=== PATIENT | female | born 1950 | race Caucasian/White ===

== ENCOUNTER 2018-02-10 09:06 | Outpatient (CLI) | payer BC | END 2018-02-10 09:07 | disposition home or self-care (01) | LOC: BICMAMMO 09:06 | PROVIDERS: ATTEND Physician Assistant | DX: Z12.31 Encounter for screening mammogram for malignant neoplasm of breast (principal); Z13.820 Encounter for screening for osteoporosis | CPT/HCPCS: 77063; 77067; 77080 ==

== ENCOUNTER 2018-10-22 11:13 | Observation (INO) | payer BC, MEDICARE ==
[2018-10-22] MEDS ORDERED: Acetaminophen 325 MG TAB PO PRN (14:20)
[2018-10-22] MEDS ORDERED: Nitroglycerin 0.4 MG TAB (25 Tab Bottle) PO PRN (14:20)
[2018-10-22] MEDS ORDERED: Ondansetron ODT 4 MG TAB PO PRN (14:20)
[2018-10-22] MEDS ORDERED: Zolpidem Tartrate 5 MG TAB PO PRN (14:20)
[2018-10-22 14:28] VITALS: BMI 26.2
--- NOTE | 2018-10-22 15:01 | HP ---
PRIMARY CARE PROVIDER: Lexi Cruz PA-C. HISTORY OF PRESENT ILLNESS: The patient referred to the [facility] by [facility] Emergency Department after being transferred from an outlhospital for behavioral medicine center. The patient presents with chest pain, most described as epigastric, happened after a bagel and coffee. It is pertinent. She has had a gastric sleeve. It lasted about 15 minutes. No shortness of breath, sweats, nausea, etc. No radiation. PAST MEDICAL HISTORY: Hypertension, gastric sleeve, appendectomy, cholecystectomy, and breast reduction. MEDICATIONS: 1. Atenolol 50 mg one a day. 2. Amlodipine 2.5 mg one a day. ALLERGIES: MORPHINE MAKES HER ITCH. FAMILY HISTORY: No coronary artery disease. No diabetes. Her mother had hypertension. SOCIAL HISTORY: . Full code. is surrogate decision maker. No tobacco. No alcohol. REVIEW OF SYSTEMS: GENERAL: She had some dizziness today with the present illness, no finding by history. She was not given any nitrates, but she did get Lovenox therapeutic dose subcu at the [facility]. EYES: No double vision, blurred vision, or flashing lights. EAR, NOSE AND THROAT: No ear pain or drainage. No nasal bleeding. No trouble swallowing. CARDIAC: See present illness. No orthopnea or paroxysmal nocturnal dyspnea. RESPIRATIONS: No cough, wheezing, or asthma. GASTROINTESTINAL: She has diarrhea occasionally since her gastric sleeve. No constipation. No nausea, no vomiting, no abdominal pain separate from the pain just described, which is basically epigastric to lower sternal. GENITOURINARY: No hematuria, dysuria, or nocturia. MUSCULOSKELETAL: No pain or swelling in her arms or legs. NEUROLOGIC: No strokes, seizures, or focal weakness. PSYCHIATRIC: She has had three anxiety attacks and she had regressed gastric sleeve. Takes no medication. SKIN: Bruises easily. HEME/LYMPH: No tender or swollen lymph nodes in the axilla, inguinal, or cervical area. PHYSICAL EXAMINATION: GENERAL: She is alert, pleasant, and cooperative lady. Excellent historian. VITAL SIGNS: Blood pressure 176/84, pulse 53, respirations are 18, and temperature 97.9. HEAD, EYES, EARS, NOSE, AND THROAT: Revealed pupils are equal, round, and reactive to light. Extraocular movements are intact. Sclerae are white. Tympanic membranes are clear. Nose is clear. Oral mucous membranes are wet. Dental hygiene is good. NECK: Supple without jugular venous distention, adenopathy, or thyromegaly. CHEST: Clear to auscultation and percussion. HEART: Regular rate and rhythm. First and second heart sounds clear. There are no appreciated murmurs or gallops. ABDOMEN: Soft. Bowel sounds are normal. There is no hepatosplenomegaly. No masses. No rebound. Bowel sounds are normal. There are no bruits. EXTREMITIES: No cyanosis, clubbing, or edema. SKIN: Warm and dry without bruises or rash. HEME/LYMPH: No tender or swollen lymph nodes in the axilla, inguinal, or cervical area. No petechial hemorrhages. PULSES: Carotid, radial, femoral, and dorsalis pedis pulses are symmetric and full. NEUROLOGIC: Cranial nerves II through XII are intact. Deep tendon reflexes symmetric. Moves all extremities. DIAGNOSTIC STUDIES: EKG done here, sinus bradycardia, otherwise within normal limits. Chest x-ray, none provided. Laboratory, none sent. Only one blood test has been done in our facility. Troponin is less than 0.01. PLAN: 1. Chest pain. Aspirin given. Lovenox given. EKG, unrevealing. Cardiac enzymes normal x1. We will repeat x2, if normal, we will do a cardiac stress test. 2. Hypertension. We will continue her current medications. 3. Sinus bradycardia in an acceptable range. We will not change medications based on that. 4. History of gastric sleeve. CBC and comprehensive metabolic profile have been ordered. Job ID: [id number]
[2018-10-22 15:15] LABS: #Basophils 0.1 thou/uL (0.0-0.2); #Eosinphils 0.1 thou/uL (0.0-0.7); #Lymphocytes 1.4 thou/uL (1.20-3.40); #Monocytes 0.3 thou/uL (0.11-0.59); #Neutrophils 2.1 thou/uL (1.40-6.50); %Basophils 1.4 % (0.0-1.0); %Lymphocytes 36.3 % (21.0-51.0); %Monocytes 7.2 % (0.0-10.0); %Neutrophils 53.1 % (42.0-75.0); Hemoglobin 13.1 g/dL (12.0-16.0); Mean Corpuscular HGB CONC 34.5 g/dL (32.0-36.0); Mean Corpuscular Hemoglobin 31.5 pg (27.0-31.0); Mean Corpuscular Volume 91.5 fL (78.0-98.0); Mean Platelet Volume 7.8 fL (7.4-10.4); Platelet Count 129 thou/uL (130-400); RBC Distribution Width 11.9 % (11.5-14.5); Red Blood Cell (RBC) Count 4.16 mill/uL (4.20-5.40)
[2018-10-22 15:39] LABS: ALT (SGPT) 427 U/L (8-55); AST (SGOT) 737 U/L (5-34); Albumin 3.5 g/dL (3.4-4.8); Alkaline Phosphatase 182 U/L (40-150); Anion Gap 10 mmol/L (10-20); BUN (Urea Nitrogen) 11 mg/dL (9.8-20.1); Bilirubin, Total 1.6 mg/dL (0.2-1.2); Calc. Creatinine Clearance 106 mL/min (70-130); Carbon Dioxide 25 mmol/L (23-31); Chloride 110 mmol/L (98-107); Estimated GFR-MDRD Greater than 90; Globulin 2.4 g/dL (2.4-3.5); Glucose 95 mg/dL (80-115); Potassium 3.8 mmol/L (3.5-5.1); Protein, Total 5.9 g/dL (6.0-8.3); Sodium 141 mmol/L (136-145)
[2018-10-22 15:42] LABS: Troponin I Less than 0.010 ng/mL (< 0.028)
[2018-10-22 18:30] LABS: Troponin I Less than 0.010 ng/mL (< 0.028)
--- NOTE | 2018-10-23 10:13 | ULT ---
RIGHT UPPER QUADRANT ULTRASOUND: HISTORY: Abnormal LFTs. FINDINGS: The liver demonstrates homogeneous echotexture without focal mass or intrahepatic ductal dilatation. The patient is post cholecystectomy. The common duct measures 3 mm in diameter. The right kidney a nd visualized portions of the pancreas are unremarkable. No free fluid is seen in the Morison's pouc h. IMPRESSION: Status post cholecystectomy, without evidence of abnormal biliary ductal dilatation. POS: [facility]
[2018-10-23] MEDS: Aspirin 325 MG TAB PO SCH (11:24)
[2018-10-23] MEDS: Amlodipine 5 MG TAB PO SCH (11:24)
[2018-10-23] MEDS: Atenolol 50 MG TAB PO SCH (11:24)
[2018-10-23 13:23] LABS: #Basophils 0.1 thou/uL (0.0-0.2); #Eosinphils 0.2 thou/uL (0.0-0.7); #Lymphocytes 0.9 thou/uL (1.20-3.40); #Monocytes 0.2 thou/uL (0.11-0.59); #Neutrophils 4.6 thou/uL (1.40-6.50); %Eosinophils 2.7 % (0.0-10.0); %Lymphocytes 15.9 % (21.0-51.0); %Monocytes 3.2 % (0.0-10.0); %Neutrophils 77.2 % (42.0-75.0); Hemoglobin 14.9 g/dL (12.0-16.0); Mean Corpuscular HGB CONC 34.7 g/dL (32.0-36.0); Mean Corpuscular Hemoglobin 31.7 pg (27.0-31.0); Mean Corpuscular Volume 91.5 fL (78.0-98.0); Mean Platelet Volume 8.1 fL (7.4-10.4); Platelet Count 169 thou/uL (130-400); RBC Distribution Width 12.1 % (11.5-14.5); White Blood Cell (WBC) Count 5.9 thou/uL (4.8-10.8)
[2018-10-23 13:50] LABS: ALT (SGPT) 311 U/L (8-55); AST (SGOT) 197 U/L (5-34); Albumin 3.9 g/dL (3.4-4.8); Alkaline Phosphatase 204 U/L (40-150); Anion Gap 12 mmol/L (10-20); BUN (Urea Nitrogen) 16 mg/dL (9.8-20.1); Bilirubin, Total 1.7 mg/dL (0.2-1.2); Calc. Creatinine Clearance 71 mL/min (70-130); Calcium 9.7 mg/dL (7.8-10.44); Carbon Dioxide 24 mmol/L (23-31); Chloride 107 mmol/L (98-107); Estimated GFR-MDRD 66; Globulin 2.8 g/dL (2.4-3.5); Glucose 248 mg/dL (80-115); Potassium 3.7 mmol/L (3.5-5.1); Protein, Total 6.7 g/dL (6.0-8.3); Sodium 139 mmol/L (136-145)
[2018-10-23 14:10] LABS: HBCM Index 0.05 S/CO (0-0.79); HBSAg Index 0.22 S/CO (0-0.99); Hep A IgM AB Non-Reactive (NonReactive); Hep A IgM S/CO 0.09 S/CO (0-0.79); Hep B Surf Ag Non-Reactive S/CO (NonReactive); Hep C IgG Ab Non-Reactive (NonReactive); Hep C Index 0.05 S/CO (0-0.79); Hepatitis B Core IgM Abs Non-Reactive (NonReactive)
--- NOTE | 2018-10-23 14:15 | NM ---
CARDIAC SPECT: HISTORY: A 68-year-old female with chest pain and hypertension. TECHNIQUE: A myocardial perfusion scan was performed using a single-isotope 1-day protocol with Technetium 99m s estamibi. 31 mCi were injected intravenously for the rest and stress images. Exercise stress was mo nitored and interpreted by Dr. Burroughs. FINDINGS: There is homogeneous tracer localization is seen in the myocardial segments on stress and rest images without fixed or reversible defects. GATED SPECT LVEF: 66%. WALL MOTION EXAM: Normal. IMPRESSION: Normal myocardial perfusion scan. POS: [facility]
--- NOTE | 2018-10-23 17:08 | PDOC.PN ---
- Subjective Encounter Start Date: 10/23/18 Encounter Start Time: 17:08 Pt seen for followup re: abnormal LFTs. Denies chest pain, nausea or vomiting. - Objective Resuscitation Status - Order Detail: 10/22/18 14:17 Resuscitation Status Routine Resuscitation Status: FULL: Full Resuscitation MAR Reviewed: Yes Vital Signs & Weight: Vital Signs (12 hours) Temp Pulse Resp BP Pulse Ox 10/23/18 15:23 98.7 F 60 16 126/69 96 10/23/18 11:33 98.7 F 76 18 124/70 96 10/23/18 07:42 98 F 60 16 151/77 H 95 Weight Weight 153 lb 8 oz I&O: 10/22/18 10/23/18 10/24/18 06:59 06:59 06:59 Intake Total 650 Balance 650 Result Diagrams: 10/23/18 12:56 10/23/18 12:56 EKG Reviewed by me: Yes (Tele: NSR) Phys Exam - Physical Examination Constitutional: NAD HEENT: moist MMs scleral icterus Neck: supple Respiratory: clear to auscultation bilateral Cardiovascular: RRR Gastrointestinal: soft Psychiatric: normal affect Dx/Plan (1) Abnormal LFTs Code(s): R94.5 - ABNORMAL RESULTS OF LIVER FUNCTION STUDIES Status: Acute Comment: abdo US unremarkable, negative acute hepatitis serology. Await GI input. (2) HTN (hypertension) Code(s): I10 - ESSENTIAL (PRIMARY) HYPERTENSION Status: Chronic Comment: controlled (3) Chest pain Code(s): R07.9 - CHEST PAIN, UNSPECIFIED Status: Resolved - Plan * . Review of Systems - Review of Systems Cardiovascular: negative: chest pain, palpitations, orthopnea, paroxysmal nocturnal dyspnea, edema, light headedness Gastrointestinal: negative: Nausea, Vomiting, Abdominal Pain, Diarrhea, Constipation, Melena, Hematochezia - Medications/Allergies Allergies/Adverse Reactions: Allergies Allergy/AdvReac Type Severity Reaction Status Date / Time morphine Allergy Verified 10/22/18 14:33 Medications: Current Medications Acetaminophen (Tylenol) 650 mg PO Q4H PRN PRN Reason: Headache/Fever/Mild Pain (1-3) Amlodipine Besylate (Norvasc) 2.5 mg PO DAILY [facility] Last Admin: 10/23/18 11:24 Dose: 2.5 mg Aspirin (Aspirin) 325 mg PO DAILY [facility] Last Admin: 12/14/18 11:24 Dose: 325 mg Atenolol (Tenormin) 50 mg PO DAILY [facility] Last Admin: 10/23/18 11:24 Dose: 50 mg Nitroglycerin (Nitrostat) 0.4 mg PO Q5MIN PRN PRN Reason: Chest Pain Ondansetron HCl (Zofran Odt) 4 mg PO Q6H PRN PRN Reason: Nausea/Vomiting Zolpidem Tartrate (Ambien) 5 mg PO HSPRN PRN PRN Reason: Insomnia
--- NOTE | 2018-10-24 01:41 | CON ---
DATE OF CONSULTATION: 10/23/2018 REASON FOR CONSULTATION: Abnormal LFTs. CONSULTING PHYSICIAN: Dr. Ran Mulligan. HISTORY OF PRESENT ILLNESS: The patient is a 68-year-old female with past medical history of hypertension, who was initially admitted to the hospital with complaints of chest pain. She states that she was in her usual state of health until yesterday when she experienced the acute onset of epigastric/substernal chest pain characterized as a sharp type sensation, non-radiating, was constant and reached the severity of approximately 7/10. There was no clear alleviating or exacerbating factors, but was associated with increased dizziness. With this increased dizziness, it prompted her to seek health-care evaluation given concern for possible heart attack. Upon evaluation in the ED, she was given a full cardiac workup that was negative for acute myocardial infarction and had resolution of her epigastric/substernal chest pain while in the ED. Upon conferring with the patient today, she has not had any further recurrences of her chest pain and is doing well without any further problems or complaints. Currently, she denies any nausea, vomiting, fevers, chills, chest pain, abdominal pain, diarrhea, constipation, dysphagia, or odynophagia. However, upon admission, she was noted to have significantly elevated transaminases characterized as an AST of 737, ALT 427, alkaline phosphatase of 182, and total bilirubin of 1.6 concerning for a possible hepatic process. REVIEW OF SYSTEMS: A 10-category review of systems was obtained with all responses negative except for the pertinent positives as listed in HPI. PAST MEDICAL HISTORY: As per HPI. PAST SURGICAL HISTORY: Gastric sleeve surgery, appendectomy, cholecystectomy, and breast reduction surgery. SOCIAL HISTORY: Denies any tobacco, alcohol, or illicit drug use. FAMILY HISTORY: Denies any GI malignancies. OUTPATIENT MEDICATIONS: 1. Atenolol 50 mg daily. 2. Amlodipine 2.5 mg daily (recently added to her medication regimen approximately 1 to 2 months ago). ALLERGIES: MORPHINE. PHYSICAL EXAMINATION: VITAL SIGNS: Temperature 98.7, pulse 60, blood pressure 126/69, respiratory rate 16, saturating 96% on room air. GENERAL: The patient was lying in bed, in no acute distress. Alert and oriented x4. HEENT: Neck supple. No JVD or scleral icterus noted. CARDIOVASCULAR: Regular rate and rhythm with no discernible murmurs, gallops, or rubs. RESPIRATORY: Clear to auscultation bilaterally with no discernible wheezes or rales. ABDOMEN: Normoactive bowel sounds. Soft, nontender, nondistended. EXTREMITIES: No cyanosis, clubbing, or edema. LABORATORY DATA: CBC with a white blood cell count of 5.9, hemoglobin 14.9, hematocrit 43, platelets 169. Chemistry with a sodium of 139, potassium 3.7, chloride 107, CO2 of 24, BUN 16, creatinine 0.86, glucose 248, AST 197, ALT 311, alkaline phosphatase 204, total bilirubin 1.7. IMAGING DATA: Right upper quadrant ultrasound obtained on October 23, 2018 showed homogeneous echotexture without mass or intrahepatic ductal dilatation. The patient did have evidence of postcholecystectomy with the common bile duct measuring 3 mm in size. ASSESSMENT AND PLAN: The patient is a 68-year-old female with past medical history of hypertension, presenting with epigastric abdominal pain and significantly elevated transaminases on labs. 1. Epigastric abdominal pain. The patient presented with the acute onset of midepigastric/substernal chest pain characterized as a sharp type sensation that was nonradiating, constant, and reached a severity of 7/10. There was no clear alleviating or exacerbating factors with spontaneous resolution while being evaluated in the ER. Cardiac workup while in the ER was negative for overt cardiac abnormalities and she has not had a further recurrence of her epigastric/chest pain since then. At this time, it is unclear as to what generated her epigastric pain, although she does have a surgical history consistent with a gastric sleeve surgery and could have been due to increased food consumption and overwhelming the gastric pouch and in turn generating increased sharp stabbing pain. Also within the differential is increased acid reflux that is common with gastric sleeve surgery, which could then generate an increased burning/stabbing type pain within the epigastric region. Recommendations;. a. Would continue to monitor the patient for recurrence of her midepigastric abdominal pain. b. Would place the patient on pantoprazole 40 mg daily for possible acid reflux contributing to her midepigastric abdominal pain. 2. Transaminitis/elevated LFTs. The patient initially presented with increased epigastric/substernal abdominal pain and noted to have significantly elevated transaminases on initial labs. Per review of her labs and given the elevation of AST and ALT primarily, it is in the more of a hepatocellular distribution consistent with toxin or medication injury to the liver parenchyma itself (the labs are not consistent with an obstructive type pattern). With the right upper quadrant ultrasound showing no significant abnormalities, it further itself towards a toxin or drug-induced injury to the liver with no evidence of cholecystitis or choledocholithiasis. Given that she was started on amlodipine within the last 1 to 2 months, it can potentially have the side effect of creating hepatitis, which would result in a hepatocellular transaminitis. However, with more conservative management, her LFTs are also significantly downtrending. At this time, the etiology of her sudden spike in transaminase is unknown, but could be due to drug-induced liver injury versus a viral illness or other underlying liver pathology, although that is less likely at this time given normal LFTs in January 2015. RECOMMENDATIONS: 1. Would continue to trend LFTs daily for tracking resolution of transaminitis. 2. Would avoid any potential hepatotoxins with consideration of removing amlodipine from her medication list given that it is a possible source of her transaminitis. 3. We will follow up on the acute hepatitis panel for a possible source of elevated transaminases. 4. We will obtain liver workup for autoimmune hepatitis and/or Ethan disease, which can potentially flare and generate a similar type picture, although this is unlikely. 5. We will continue to follow. Please call with any questions. Job ID: [id number]
[2018-10-24 06:32] LABS: #Basophils 0.1 thou/uL (0.0-0.2); #Eosinphils 0.2 thou/uL (0.0-0.7); #Lymphocytes 1.1 thou/uL (1.20-3.40); #Monocytes 0.4 thou/uL (0.11-0.59); #Neutrophils 2.8 thou/uL (1.40-6.50); %Basophils 1.6 % (0.0-1.0); %Eosinophils 3.7 % (0.0-10.0); %Lymphocytes 25.3 % (21.0-51.0); %Monocytes 8.4 % (0.0-10.0); Hemoglobin 14.6 g/dL (12.0-16.0); Mean Corpuscular Hemoglobin 31.7 pg (27.0-31.0); Mean Corpuscular Volume 90.4 fL (78.0-98.0); Mean Platelet Volume 7.9 fL (7.4-10.4); Platelet Count 145 thou/uL (130-400); RBC Distribution Width 11.9 % (11.5-14.5); Red Blood Cell (RBC) Count 4.62 mill/uL (4.20-5.40); White Blood Cell (WBC) Count 4.5 thou/uL (4.8-10.8)
[2018-10-24 06:42] LABS: ALT (SGPT) 214 U/L (8-55); AST (SGOT) 91 U/L (5-34); Albumin 3.7 g/dL (3.4-4.8); Alkaline Phosphatase 179 U/L (40-150); Anion Gap 13 mmol/L (10-20); BUN (Urea Nitrogen) 16 mg/dL (9.8-20.1); Bilirubin, Total 1.5 mg/dL (0.2-1.2); Calc. Creatinine Clearance 92 mL/min (70-130); Calcium 9.5 mg/dL (7.8-10.44); Carbon Dioxide 24 mmol/L (23-31); Chloride 109 mmol/L (98-107); Estimated GFR-MDRD 90; Globulin 2.5 g/dL (2.4-3.5); Glucose 91 mg/dL (80-115); Potassium 3.5 mmol/L (3.5-5.1); Protein, Total 6.2 g/dL (6.0-8.3); Sodium 142 mmol/L (136-145)
[2018-10-24] MEDS: Amlodipine 5 MG TAB PO SCH (08:33)
[2018-10-24] MEDS: Atenolol 50 MG TAB PO SCH (08:33)
[2018-10-24] MEDS: Aspirin 325 MG TAB PO SCH (08:33)
--- NOTE | 2018-10-24 13:49 | EKG ---
Test Reason : CHEST PAIN Blood Pressure : / mmHG Vent. Rate : 054 BPM Atrial Rate : 054 BPM P-R Int : 188 ms QRS Dur : 098 ms QT Int : 462 ms P-R-T Axes : 066 -11 008 degrees QTc Int : 438 ms Sinus bradycardia Moderate voltage criteria for LVH, may be normal variant Borderline ECG T wave inversion V1 No prior ekg for comparison Confirmed by PARAMJIT DOMINGUEZ ([id number]), script editor BRIAN ERIC ([id number]) on 10/24/2018 1:49:07 PM Referred By: Confirmed By:PARAMJIT DOMINGUEZ
--- NOTE | 2018-10-24 15:05 | PDOC.PN ---
- Subjective Encounter Start Date: 10/24/18 Encounter Start Time: 12:30 Subjective: Patient resting. She is feeling well in herself. No complaints. -: Denies any abdominal pain or cramping. No n/v. -: No fevers. Denies CP/SOB. Eating/drinking as normal. - Objective Resuscitation Status - Order Detail: 10/22/18 14:17 Resuscitation Status Routine Resuscitation Status: FULL: Full Resuscitation MAR Reviewed: Yes Vital Signs & Weight: Vital Signs (12 hours) Temp Pulse Resp BP BP Pulse Ox 10/24/18 11:30 98.7 F 52 L 16 131/67 96 10/24/18 08:33 60 116/63 10/24/18 07:48 98.2 F 65 15 116/63 95 10/24/18 03:10 97.5 F L 60 14 147/72 H 97 Weight Weight 153 lb 8 oz I&O: 10/23/18 10/24/18 10/25/18 06:59 06:59 06:59 Intake Total 650 1330 600 Balance 650 1330 600 Result Diagrams: 10/24/18 06:06 10/24/18 06:06 Phys Exam - Physical Examination Constitutional: NAD HEENT: PERRLA, moist MMs, sclera anicteric, oral pharynx no lesions Neck: no nodes, no JVD, full ROM Respiratory: no wheezing, no rales, clear to auscultation bilateral Cardiovascular: RRR Gastrointestinal: soft, non-tender, no distention, positive bowel sounds Musculoskeletal: no edema, pulses present Neurological: non-focal, normal sensation, moves all 4 limbs Lymphatic: no nodes Psychiatric: normal affect, A&O x 3 Skin: no rash, normal turgor Dx/Plan (1) Abnormal LFTs Code(s): R94.5 - ABNORMAL RESULTS OF LIVER FUNCTION STUDIES Status: Acute Plan: LFTs are all trending down significantly. Hep panel negative. Abd US negative. Presumed to be possibly medication induced. Awaiting further GI input. Comment: abdo US unremarkable, negative acute hepatitis serology. Await GI input. (2) HTN (hypertension) Code(s): I10 - ESSENTIAL (PRIMARY) HYPERTENSION Status: Chronic Comment: controlled - Plan cont current plan of care * .
[2018-10-24 15:55] VITALS: BP 143/75; TEMP 98.3
[2018-10-26 11:15] LABS: Smooth Muscle Total ABS 8 Units (0-19)
[2018-10-30 15:29] LABS: Epstein Barr Virus PCR Negative (Negative)
== END 2018-10-24 17:34 | disposition home or self-care (01) ==
LOC: ERS 11:13 → 2SW 12:50
PROVIDERS: ADMIT Internal Medicine; ATTEND Internal Medicine
DX: R07.2 Precordial pain (principal); R94.5 Abnormal results of liver function studies; I10 Essential (primary) hypertension; Z79.899 Other long term (current) drug therapy; Z88.5 Allergy status to narcotic agent; Z98.84 Bariatric surgery status
CPT/HCPCS: 36415; 76705; 78452; 80053; 80074; 82390; 83516; 84484; 85025; 87798; 93005; 93017; 94760; 96360; A9500; G0378

== ENCOUNTER 2021-09-05 08:03 | Outpatient (CLI) | payer MEDICARE | END 2021-09-05 08:04 | disposition home or self-care (01) | LOC: BICMAMMO 08:03 | PROVIDERS: ATTEND Surgery | DX: M15.9 Polyosteoarthritis, unspecified (principal); M85.851 Other specified disorders of bone density and structure, right thigh; M85.852 Other specified disorders of bone density and structure, left thigh; Z68.39 Body mass index [BMI] 39.0-39.9, adult | CPT/HCPCS: 77080 ==

== ENCOUNTER 2022-01-09 08:02 | Outpatient (CLI) | payer MEDICARE | END 2022-01-09 08:03 | disposition home or self-care (01) | LOC: BICMAMMO 08:02 | PROVIDERS: ATTEND Physician Assistant | DX: Z12.31 Encounter for screening mammogram for malignant neoplasm of breast (principal); Z98.890 Other specified postprocedural states | CPT/HCPCS: 77063; 77067 ==